=== PATIENT | male | born 1970 | race Caucasian/White ===

== ENCOUNTER 2022-06-18 08:38 | Emergency (ER) | payer OTHER ==
[~2022-06-18] VITALS: Ht 180.3 cm; Wt 78.0 kg
[2022-06-18 10:31] LABS: BASOPHILS % 0.8 % (0.0-2.0); HEMATOCRIT. 49.3 % (42.0-52.0); LYMPHOCYTES % 29.4 % (20.0-50.0); MEAN CORPUSCULAR VOLUME 95.9 fL (80.0-94.0); MEAN PLATELET VOLUME 7.1 fl (7.4-10.4); MONOCYTES % 6.5 % (2.0-8.0); NEUTROPHILS % 63.3 % (40.0-76.0); PLATELET 174 x1000/uL (130-400); RED BLOOD CELL COUNT 5.14 mill/uL (4.7-6.1); RED CELL DISTRIBUTION WIDTH 14.4 % (11.6-14.6)
[2022-06-18 10:55] LABS: CLARITY URINE CLEAR (CLEAR); COLOR URINE YELLOW (YELLOW); KETONES URINE 2+ (NEGATIVE); LEUKOCYTE ESTERASE URINE NEGATIVE (NEGATIVE); NITRITE URINE NEGATIVE (NEGATIVE); OCCULT BLOOD URINE 1+ (NEGATIVE); PROTEIN URINE 1+ (NEGATIVE); SPECIFIC GRAVITY URINE 1.024 (1.005-1.030)
[2022-06-18 11:07] LABS: CHLORIDE 103 mEq/L (98-107); CREATINE KINASE 53 IU/L (39-308)
[2022-06-18] MEDS ORDERED: IOHEXOL-350 100 ML BOTTLE ONE (11:20)
[2022-06-18 14:02] VITALS: BP 97/74
[2022-06-24 13:11] LABS: *HIV-1 RNA BY PCR <20 copies/mL (.)
== END 2022-06-18 14:05 | disposition home or self-care (01) ==
LOC: ER 08:38
DX: R51.9 Headache, unspecified (principal); R53.1 Weakness; B20 Human immunodeficiency virus [HIV] disease; Z20.822 Contact with and (suspected) exposure to COVID-19
CPT/HCPCS: 36415; 70450; 70496; 70498; 71045; 80053; 81003; 82550; 83605; 84145; 85025; 87040; 87086; 87426; 87536; 87804; 99291; C9803; Q9967; Z7610